=== PATIENT | male | born 1965 | race Two or more races ===

== ENCOUNTER 2017-04-15 11:30 | Inpatient (IN) | payer MEDICAID ==
[~2017-04-15] VITALS: Ht 157.5 cm; Wt 78.0 kg
[2017-04-15] MEDS ORDERED: ONDANSETRON HCL/PF 4 MG/2 ML VIAL IVP ONE (12:00)
[2017-04-15] MEDS ORDERED: IV NS 0.9% 1,000 ML BAG IV ONE (12:00)
[2017-04-15] MEDS ORDERED: Thiamine 100 MG in IV D5W 50 ML IV SCH (12:00)
[2017-04-15] MEDS ORDERED: ONDANSETRON HCL/PF 4 MG/2 ML VIAL ONE (12:03)
[2017-04-15 12:17] LABS: BASOPHILS # (AUTO) 0.2 /CMM (0.0-0.2); BASOPHILS % (AUTO) 3.3 % (0.0-2.0); EOSINOPHILS % (AUTO) 0.4 % (0.0-6.0); HEMATOCRIT 41 % (39-51); HEMOGLOBIN 14.1 g/dL (13.5-17.5); LYMPHOCYTES # (AUTO) 1.2 /CMM (0.8-4.8); LYMPHOCYTES % (AUTO) 16.9 % (20.0-44.0); MEAN CORPUSCULAR HEMOGLOBIN 31 PG (26.0-33.0); MEAN CORPUSCULAR HGB CONC 34 g/dl (31.0-36.0); MEAN CORPUSCULAR VOLUME 91 fL (80-96); MONOCYTES # (AUTO) 0.6 /CMM (0.1-1.30); MONOCYTES % (AUTO) 8.8 % (2.0-12.0); NEUTROPHILS # (AUTO) 5.2 /CMM (1.8-8.9); NEUTROPHILS % (AUTO) 70.6 % (43.0-81.0); PLATELET COUNT (AUTO) 195 /CMM (150-450); RDW COEFFICIENT OF VARIATION 12.7 (11.5-15.0); RED BLOOD CELL COUNT(AUTO) 4.52 MIL/uL (4.5-6.0); WHITE BLOOD COUNT (AUTO) 7.2 K/uL (4.3-11.0)
[2017-04-15 12:34] LABS: ALBUMIN 3.5 g/dL (3.4-5.0); BILIRUBIN,DIRECT 0.2 mg/dL (0.0-0.2); BILIRUBIN,TOTAL 0.9 mg/dL (0.2-1.0); CREATININE 0.9 mg/dL (0.6-1.3); TOTAL PROTEIN, SERUM 7.2 g/dL (6.4-8.2)
[2017-04-15 12:36] LABS: POTASSIUM 2.4 mmol/L (3.5-5.1)
[2017-04-15] MEDS ORDERED: IV NS 0.9% 1,000 ML IV ONE (13:00)
[2017-04-15] MEDS ORDERED: POTASSIUM CHLORIDE 20 MEQ TAB.PRT.SR PO ONE ×2 (13:00→13:02)
[2017-04-15] MEDS: POTASSIUM CL. PREMIX PERIPHER. 50 ML IV SCH ×4 (13:00→16:49)
[2017-04-15] MEDS ORDERED: Magnesium 1 GM/2 ML VIAL IV ONE (13:00)
[2017-04-15] MEDS ORDERED: Magnesium 1GM/D5W 100ML PREMIX 200 ML IV ONE (13:03)
[2017-04-15] MEDS ORDERED: HYDROCODONE/APAP 10/325MG 1 EA TABLET PO PRN (14:30)
[2017-04-15] MEDS ORDERED: MAGNESIUM HYDROXIDE 30 ML UDC PO PRN (14:30)
[2017-04-15] MEDS ORDERED: HYDROCODONE/APAP 5/325MG 1 EACH TABLET PO PRN (14:30)
[2017-04-15] MEDS ORDERED: LORAZEPAM INJ 2 MG/ML VIAL IV PRN (14:30)
[2017-04-15] MEDS ORDERED: MAG HYDROX/AL HYDROX/SIMETH 30 ML UDC PO PRN (14:30)
[2017-04-15] MEDS ORDERED: ONDANSETRON HCL/PF 4 MG/2 ML VIAL IVP PRN (14:30)
[2017-04-15] MEDS ORDERED: Z GUARD REMEDY 2 OZ OINT TP PRN (14:30)
[2017-04-15] MEDS ORDERED: ACETAMINOPHEN 325 MG TABLET PO PRN (14:30)
[2017-04-15 14:50] VITALS: BP 125/75
--- NOTE | 2017-04-15 15:00 | NUR ---
INITIAL CALIBRATION TECHNICIAN NOTE ADMITTED PT FROM ER, PT TRANSPORTED VIA GURNEY SHOWING NO S/O DISTRESS/PAIN AT THIS TIME. PT A/O X4, SR ON TELE. AMBULATORY WITH STEADY GAIT. R/L AC #20 C/D/I/PATENT. NO S/O INFILTRATION/PHLEBITIS OBSERVED UPON FLUSHING. ELIO LOWE ESCORTED PT AND GAVE REPORT AT BEDSIDE. PT CAME WITH KCl INFUSING PER REPORT 2/4 BAGS ORDERED. WILL CONTINUE TO MONITOR PT FOR SAFETY AND COMFORT. PT ORIENTED TO ROOM. CALL LIGHT WITHIN REACH. BED IN LOW AND LOCKED POSITION.
[2017-04-15] MEDS: IV NS 0.9% 1,000 ML IV PRN ×2 (15:14→22:42)
[2017-04-15] MEDS: ENOXAPARIN SODIUM 40 MG/0.4 ML DISP.SYRIN SQ SCH (15:16)
[2017-04-15 16:41] VITALS: BP 131/77
--- NOTE | 2017-04-15 17:07 | NUR ---
GAS LINE INSTALLER NOTE PT STATES THAT HE HAS DIFFICULTY SLEEPING, PAULINA CLASSROOM MONITOR IN UNIT INFORMED. RCVD ORDER FOR RESTORIL. ORDER ENTERED AND ACKNOWLEDGED. PT INFORMED OF MEDICATION AVAILABILITY AND WILL INFORM SAMPLE CASE PORTER RN TO DISPENSE SCHEDULED.
--- NOTE | 2017-04-15 18:09 | NUR ---
ELECTRICIAN WIRING NOTE PT REMAINS IN STABLE CONDITION, SHOWING NO S/O DISTRESS/PAIN. PT'S CARE WILL BE ENDORSED TO CARE ADMINISTRATIVE TECH RN FOR CONTINUITY OF CARE AT CHANGE OF SHIFT.
[2017-04-15 18:39] LABS: URINE SODIUM, RANDOM 6 mmol/l (40-220)
[2017-04-15 19:36] LABS: OSMOLALITY,URINE 138 mOS/kg (340-1090)
[2017-04-15 20:00] VITALS: BP_SYST 110; BP_SYST 120; BP_DIAS 52; BP_DIAS 72
[2017-04-15] MEDS: FAMOTIDINE/PF INJ 20 MG/2 ML VIAL IV SCH (20:58)
[2017-04-15] MEDS: TEMAZEPAM 15 MG CAPSULE PO PRN (22:20)
[2017-04-16] VITALS: BP 105/60
[2017-04-16 04:00] VITALS: BP 104/64
[2017-04-16 05:54] LABS: BASOPHILS % (AUTO) 0.2 % (0.0-2.0); EOSINOPHILS # (AUTO) 0.1 /CMM (0.0-0.7); EOSINOPHILS % (AUTO) 1.3 % (0.0-6.0); HEMATOCRIT 37 % (39-51); HEMOGLOBIN 12.7 g/dL (13.5-17.5); LYMPHOCYTES # (AUTO) 1.3 /CMM (0.8-4.8); LYMPHOCYTES % (AUTO) 25.1 % (20.0-44.0); MEAN CORPUSCULAR HEMOGLOBIN 31 PG (26.0-33.0); MEAN CORPUSCULAR HGB CONC 34 g/dl (31.0-36.0); MEAN CORPUSCULAR VOLUME 91 fL (80-96); MONOCYTES # (AUTO) 0.7 /CMM (0.1-1.30); MONOCYTES % (AUTO) 12.9 % (2.0-12.0); NEUTROPHILS # (AUTO) 3.1 /CMM (1.8-8.9); NEUTROPHILS % (AUTO) 60.5 % (43.0-81.0); PLATELET COUNT (AUTO) 198 /CMM (150-450); RDW COEFFICIENT OF VARIATION 13.6 (11.5-15.0); RED BLOOD CELL COUNT(AUTO) 4.09 MIL/uL (4.5-6.0); WHITE BLOOD COUNT (AUTO) 5.1 K/uL (4.3-11.0)
[2017-04-16] MEDS: IV NS 0.9% 1,000 ML IV PRN ×2 (06:18→15:45)
[2017-04-16 06:20] LABS: CALCIUM, SERUM 7.9 mg/dL (8.5-10.1); CREATININE 0.9 mg/dL (0.6-1.3); MAGNESIUM 2.5 mg/dL (1.8-2.4); PHOSPHORUS 3.3 mg/dL (2.5-4.9)
[2017-04-16 06:26] LABS: POTASSIUM 2.7 mmol/L (3.5-5.1)
--- NOTE | 2017-04-16 06:53 | NUR ---
TELE-1/PHYSICIST [facility] POTASSIUM 2.7 WILL ENDORSE TO AM SHIFT TO FOLLOW UP.
--- NOTE | 2017-04-16 07:10 | NUR ---
MARKETING RECRUITER NOTES PATIENT IN BED, AWAKE, A/O X4. SINUS RHYTHM HR 75 IN THE MONITOR. IVC IN LEFT AC G20 PATENT AND INTACT, IVF NS INFUSING AT 125ML/HR. APPEARS COMFORTABLE IN BED. CALL LIGHT WITHIN REACH. WILL CONT TO MONITOR.
[2017-04-16 08:00] VITALS: BP 113/70
[2017-04-16] MEDS: FAMOTIDINE/PF INJ 20 MG/2 ML VIAL IV SCH ×2 (08:31→21:25)
[2017-04-16] MEDS: ENOXAPARIN SODIUM 40 MG/0.4 ML DISP.SYRIN SQ SCH (08:39)
[2017-04-16] MEDS ORDERED: Thiamine 100 MG in IV D5W 50 ML IV SCH (09:00)
[2017-04-16] MEDS ORDERED: POTASSIUM CHLORIDE 20 MEQ TAB.PRT.SR PO ONE (11:30)
[2017-04-16] MEDS ORDERED: POTASSIUM CL. PREMIX PERIPHER. 50 ML IV ONE (11:30)
--- NOTE | 2017-04-16 11:44 | NUR ---
CLARIFIED POTASSIUM CHLORIDE ORDERS WITH HERNANDEZ/TOLL TESTBOARD WORKER. ORDERED TO ADD POTASSIUM CHLORIDE 10MEQ IV X1 TOTAL OF POTASSIUM CHLORIDE 20MEQ IV, WITH CURRENT NEW ORDERS POTASSIUM CHLORIDE 40MEQ PO TAB.
[2017-04-16 12:00] VITALS: BP 116/71
[2017-04-16] MEDS ORDERED: POTASSIUM CL. PREMIX PERIPHER. 50 ML IV SCH (12:00)
[2017-04-16 16:00] VITALS: BP 115/69
--- NOTE | 2017-04-16 18:31 | NUR ---
WEIGHT LOSS CENTRE MANAGER CLOSING NOTES PATIENT IS A/O X4. ON TELE MONITOR SINUS RHYTHM HR 84. TOLERATING FULL LIQUIDS DIET, NO EPISODE OF VOMITING OR C/O NAUSEA. POTASSIUM CHLORIDE SUPPLEMENT TODAY. IVF NS INFUSING AT 125ML/HR, TOLERATING WELL, NO SOB. CALL LIGHT WITHIN REACH. CM FOR PLACEMENT. WILL ENDORSE TO RN RESOURCE NURSE RN FOR KAEL.
[2017-04-16 20:00] VITALS: BP 121/80
[2017-04-16] MEDS: TEMAZEPAM 15 MG CAPSULE PO PRN (21:01)
[2017-04-17] VITALS: BP 110/73
[2017-04-17] MEDS: IV NS 0.9% 1,000 ML IV PRN ×2 (00:21→08:57)
[2017-04-17 04:00] VITALS: BP 107/74
[2017-04-17 06:18] LABS: BASOPHILS % (AUTO) 0.5 % (0.0-2.0); EOSINOPHILS # (AUTO) 0.1 /CMM (0.0-0.7); EOSINOPHILS % (AUTO) 2.5 % (0.0-6.0); HEMATOCRIT 37 % (39-51); HEMOGLOBIN 12.8 g/dL (13.5-17.5); LYMPHOCYTES # (AUTO) 1.5 /CMM (0.8-4.8); LYMPHOCYTES % (AUTO) 25.6 % (20.0-44.0); MEAN CORPUSCULAR HEMOGLOBIN 32 PG (26.0-33.0); MEAN CORPUSCULAR HGB CONC 35 g/dl (31.0-36.0); MEAN CORPUSCULAR VOLUME 92 fL (80-96); MONOCYTES # (AUTO) 1.1 /CMM (0.1-1.30); MONOCYTES % (AUTO) 19.1 % (2.0-12.0); NEUTROPHILS % (AUTO) 52.3 % (43.0-81.0); PLATELET COUNT (AUTO) 231 /CMM (150-450); RDW COEFFICIENT OF VARIATION 13.9 (11.5-15.0); RED BLOOD CELL COUNT(AUTO) 4.01 MIL/uL (4.5-6.0); WHITE BLOOD COUNT (AUTO) 5.7 K/uL (4.3-11.0)
[2017-04-17 06:34] LABS: CREATININE 0.8 mg/dL (0.6-1.3); POTASSIUM 3.4 mmol/L (3.5-5.1)
--- NOTE | 2017-04-17 07:10 | NUR ---
RN NOTES RECEIVED PT ON BED, A/O X4. [place] SPEAKING , RESPIRATION EVEN AND UNLABORED, DINES ANY DISTRESS AT THIS TIME , ON TELE SR, HR IN 60'S , R AC AND L AC IV SITES G 20 CDI, IVF NS AT 125CC/HR RUNNING VIA L AC IV , SR UP x3, CALL LIGHTS WITHIN EASY REACH, BED LOCKED AND IN LOWEST POSITION , WILL CONT TO MONITOR.
[2017-04-17 08:00] VITALS: BP 123/84
[2017-04-17] MEDS: FAMOTIDINE/PF INJ 20 MG/2 ML VIAL IV SCH (08:57)
[2017-04-17] MEDS: ENOXAPARIN SODIUM 40 MG/0.4 ML DISP.SYRIN SQ SCH (08:58)
[2017-04-17] MEDS ORDERED: THIAMINE HCL 100 MG TABLET PO SCH (09:00)
[2017-04-17 09:37] LABS: LYMPHOCYTES % (MANUAL) 29 % (16-48); MONOCYTES % (MANUAL) 9 % (0-11.0); NEUTROPHILS % (MANUAL) 62 (42-76)
--- NOTE | 2017-04-17 11:30 | NUR ---
RN NOTES UPON ARRIVAL TO THE ROOM , PT FOUND SITTING AT THE EDGE OF THE BED AND STATED WANTS TO LEAVE AND GO HOME NOW. H/L ALREADY TAKEN OUT BY THE PT . IV SITE COVERED BY 4X4, EXPLAINED TO PT HOW IMPORTANT IT IS TO FOLLOW THE PLAN OF CARE, PT STILL REFUSED TO STAY AND WANT TO GO HOME AMA. PAULINA PRESSURE STEAMER TENDER NOTIFIED, AMA FORM SIGNED BY PT , PT LEFT THE FLOOR AMBULATORY TO MAIN ENTRANCE , NO DISTRESS NOTED AT THIS TIME .
--- NOTE | 2017-04-17 11:35 | NUR ---
flavor room worker consult requested by Gaetano [facility] for homelessness and alcohol use. Patient is Ch[place] speaking and criminal justice social worker met with the patient bedside. Patient is a 51 year old male. He is alert and oriented x3. Patient states that he wants to leave AMA and is ready to leave the hospital. As criminal justice social worker was speaking to him, he was tying his shoes and stating that he wants to leave. He reported that he lives in a [facility] ([facility]) located at [address] [place] [address]. 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 He stated that he has a job in [employer] and that is the reason why he is wanting to leave the hospital. He stated that he has been living in the druze for two years . He notes that he has $20.00 and will use that money for transportation. He denied drug/alcohol use however later admitted he drinks "a little bit." flavor room worker spoke to the patient about winter shelters, food resources, substance abuse treatment programs, and low cost medical clinics. He stated that he does not need any referrals however, he accepted the copy provided by the criminal justice social worker. Patient is refusing placement and wants to leave AMA. Patient's nurse Yajaira and charge nurse Zakiya notified. Patient signed the patient homeless waiver and original was placed into the patient's chart.
== END 2017-04-17 11:38 | disposition left against medical advice (07) | DRG 282 ==
LOC: ER 11:32 → TELE1 14:34 → MEDSG1 04-17 11:00
PROVIDERS: ADMIT Nurse Practitioner Acute Care; ATTEND Nurse Practitioner Acute Care
DX: K85.90 Acute pancreatitis without necrosis or infection, unspecified (principal); N17.9 Acute kidney failure, unspecified; E87.6 Hypokalemia; E87.1 Hypo-osmolality and hyponatremia; E86.1 Hypovolemia; Z59.0 Homelessness; E86.0 Dehydration; F10.20 Alcohol dependence, uncomplicated; Y90.9 Presence of alcohol in blood, level not specified
CPT/HCPCS: 36415; 71010-TC; 80048-TC; 80061-TC; 80076-TC; 83690-TC; 83735-TC; 83935-TC; 84100-TC; 84300-TC; 85025-TC; 87081-TC; A4606; J1650; J2405; J3411; J3475; J3480; J3490; J7030; J7060; Z7610